=== PATIENT | female | born 1955 | race African-American/Black ===

== ENCOUNTER 2016-04-25 05:07 | Inpatient (IN) | payer OTHER ==
[~2016-04-25] VITALS: Ht 170.2 cm; Wt 99.4 kg
[~2016-04-25 05:07] MED LIST: ALPRAZOLAM0.5 MG PO; AMLODIPINE BESYL5 MG PO; BUPROPION XL150 MG PO; CITRATE OF MAG296 ML PO; COZAAR100 MG PO; EFFEXOR75 MG; FLEET ENEMA-AD118 ML PR; FLEXERIL10 MG PO; FLOVENT 11120 INHALA IH; HYDROCHLOROTHIA25 MG PO; HYDROCHLOROTHIA50 MG PO; IBUPROFEN800 MG PO; INDOCIN50 MG PO; K-DUR10 MEQ PO; K-DUR20 MEQ PO; LEVAQUIN750 MG PO; LIPITOR10 MG PO; LISINOPRIL2.5 MG PO; LOSARTAN POTAS100 MG PO; MOTRIN800 MG PO; NORVASC5 MG PO; PROAIR RESPICL90 MCG IH; TRAMADOL HCL50 MG PO; ULTRAM50 MG PO; VITAMIN D31000 UNI2 PO; WELLBUTRIN SR150 MG PO; XANAX0.25 MG PO; ZOFRAN8 MG PO
[2016-04-25 06:01] VITALS: BP 114/66
[2016-04-25 12:01] VITALS: BP 121/64
[2016-04-25 16:00] LABS: HEMATOCRIT 34.8 % (36.0-46.0); MCH 24.4 PG (29.0-34.0); MCHC 30.5 G/DL (30.0-36.0); MEAN PLAT.VOLUME 8.6 uM^3 (9.5-12.4); PLATELET COUNT 422 K/uL (156-360); RBC DIS.WIDTH-SD 44.3 % (39-53); RED BLOOD COUNT 4.35 M/uL (3.80-5.20); WHITE BLOOD COUNT 10.9 K/uL (4.1-10.2)
[2016-04-25 16:26] LABS: ANION GAP 11 MEQ/L (2-14); CHLORIDE 102 MEQ/L (99-109); GFR ESTIMATE (CALCULATED) > 59 mL/min/; GLUCOSE 181 mg/dL (70-99); POTASSIUM 3.9 MEQ/L (3.7-5.4); SAMPLE HEMOLYSIS CHECK 0; SAMPLE ICTERIC CHECK 0; SAMPLE LIPEMIA CHECK 0; SODIUM 138 MEQ/L (136-147); UREA NITROGEN (BUN) 13 mg/dL (9-23)
[2016-04-25 16:50] VITALS: BP 112/63
[2016-04-25 19:09] VITALS: BP 118/54
[2016-04-25 23:24] VITALS: BP 110/57
[2016-04-26 03:31] VITALS: BP 125/60
[2016-04-26 06:33] LABS: HEMATOCRIT 33.8 % (36.0-46.0); MCH 25.2 PG (29.0-34.0); MCHC 31.4 G/DL (30.0-36.0); MCV 80.3 FL (83-99); PLATELET COUNT 419 K/uL (156-360); RBC DIS.WIDTH-SD 44.2 % (39-53); RED BLOOD COUNT 4.21 M/uL (3.80-5.20); WHITE BLOOD COUNT 12.5 K/uL (4.1-10.2)
[2016-04-26 06:56] LABS: ANION GAP 9 MEQ/L (2-14); CHLORIDE 101 MEQ/L (99-109); GFR ESTIMATE (CALCULATED) > 59 mL/min/; GLUCOSE 125 mg/dL (70-99); POTASSIUM 3.5 MEQ/L (3.7-5.4); SAMPLE HEMOLYSIS CHECK 0; SAMPLE ICTERIC CHECK 0; SAMPLE LIPEMIA CHECK 0; SODIUM 138 MEQ/L (136-147); UREA NITROGEN (BUN) 11 mg/dL (9-23)
[2016-04-26 08:05] VITALS: BP 119/72
[2016-04-26 10:54] VITALS: BP 103/62
[2016-04-26 16:00] VITALS: BP 110/68
[2016-04-26 19:00] VITALS: BP 144/77
[2016-04-26 23:25] VITALS: BP 120/65
[2016-04-27 03:05] VITALS: BP 117/56
[2016-04-27 07:07] LABS: HEMATOCRIT 31.4 % (36.0-46.0); MCH 25.1 PG (29.0-34.0); MCHC 31.5 G/DL (30.0-36.0); MCV 79.7 FL (83-99); PLATELET COUNT 415 K/uL (156-360); RED BLOOD COUNT 3.94 M/uL (3.80-5.20); WHITE BLOOD COUNT 6.2 K/uL (4.1-10.2)
[2016-04-27 07:22] LABS: ANION GAP 10 MEQ/L (2-14); CHLORIDE 101 MEQ/L (99-109); GFR ESTIMATE (CALCULATED) > 59 mL/min/; GLUCOSE 101 mg/dL (70-99); POTASSIUM 3.3 MEQ/L (3.7-5.4); SAMPLE HEMOLYSIS CHECK 0; SAMPLE ICTERIC CHECK 0; SAMPLE LIPEMIA CHECK 0; SODIUM 141 MEQ/L (136-147); UREA NITROGEN (BUN) 11 mg/dL (9-23)
[2016-04-27 07:55] VITALS: BP 142/86
== END 2016-04-27 10:42 | disposition home or self-care (01) | DRG 743 ==
LOC: 2SOUTH 05:07 → 2EASTP 11:15 → 2SOUTH 12:43 → 2EASTP 04-27 10:42
PROVIDERS: Obstetrics & Gynecology Gynecologic Oncology
DX: N83.202 Unspecified ovarian cyst, left side (principal); N73.6 Female pelvic peritoneal adhesions (postinfective); J44.9 Chronic obstructive pulmonary disease, unspecified; I10 Essential (primary) hypertension; E78.5 Hyperlipidemia, unspecified; F17.200 Nicotine dependence, unspecified, uncomplicated; D21.9 Benign neoplasm of connective and other soft tissue, unspecified; D64.9 Anemia, unspecified; E87.6 Hypokalemia; E66.9 Obesity, unspecified; E55.9 Vitamin D deficiency, unspecified; N13.5 Crossing vessel and stricture of ureter without hydronephrosis; Z68.34 Body mass index [BMI] 34.0-34.9, adult
CPT/HCPCS: 36415; 80048; 85027; 85730; 86850; 86900; 86901; 86920; 88305; 94640; 94640 76; 99202; C1758; J0330; J1100; J1170; J1580; J1650; J2270; J2405; J2710; J2765; J3010; J7050; S0030

== ENCOUNTER 2016-09-06 18:42 | Emergency (ER) | payer OTHER ==
[~2016-09-06] VITALS: Ht 170.2 cm; Wt 89.4 kg
[2016-09-06 19:51] LABS: HEMATOCRIT 36.5 % (36.0-46.0); MCH 24.7 PG (29.0-34.0); MCHC 30.4 G/DL (30.0-36.0); MCV 81.1 FL (83-99); MEAN PLAT.VOLUME 8.1 uM^3 (9.5-12.4); PLATELET COUNT 298 K/uL (156-360); RBC DIS.WIDTH-CV 14.1 % (11.8-14.6); RBC DIS.WIDTH-SD 41.8 % (39-53); WHITE BLOOD COUNT 5.3 K/uL (4.1-10.2)
[2016-09-06 20:04] LABS: CHLORIDE 102 mEq/L (99-109); POTASSIUM 3.2 mEq/L (3.7-5.4); SODIUM 140 mEq/L (136-147)
[2016-09-06 20:05] LABS: GLUCOSE 147 mg/dL (70-99)
[2016-09-06 20:07] LABS: ANION GAP 8 MEQ/L (2-14)
[2016-09-06 20:09] LABS: GFR ESTIMATE (CALCULATED) > 59 mL/min/
[2016-09-06 20:10] LABS: UREA NITROGEN (BUN) 14 mg/dL (9-23)
[2016-09-06 20:12] LABS: CREATINE KINASE 139 IU/L (1-294)
[2016-09-06] MEDS ORDERED: ULTRAM50 MG PO (20:24)
[2016-09-06 21:24] VITALS: BP 130/87
== END 2016-09-06 21:11 | disposition home or self-care (01) ==
LOC: EME 18:42
PROVIDERS: Physician Assistant Medical
DX: M79.605 Pain in left leg (principal); M79.604 Pain in right leg; F32.9 Major depressive disorder, single episode, unspecified; E78.5 Hyperlipidemia, unspecified; J44.9 Chronic obstructive pulmonary disease, unspecified; Z88.0 Allergy status to penicillin; Z88.6 Allergy status to analgesic agent; Z87.891 Personal history of nicotine dependence
CPT/HCPCS: 80048; 82550; 85027; 99281; 99284

== ENCOUNTER 2016-09-13 16:09 | Emergency (ER) | payer OTHER ==
[~2016-09-13] VITALS: Ht 170.2 cm; Wt 89.1 kg
[2016-09-13 18:30] VITALS: BP 152/101
== END 2016-09-13 18:32 | disposition home or self-care (01) ==
LOC: EME 16:09
DX: M54.32 Sciatica, left side (principal); M54.31 Sciatica, right side; J44.9 Chronic obstructive pulmonary disease, unspecified; E78.5 Hyperlipidemia, unspecified; Z87.891 Personal history of nicotine dependence
CPT/HCPCS: 99281; 99283